=== PATIENT | male | born 2000 | race Caucasian/White ===

== ENCOUNTER 2022-04-06 12:33 | Emergency (ER) | payer MEDICAID, SELFPAY ==
[2022-04-06 12:35] VITALS: BP 96/41; PULSE 108; RESP 17; TEMP 38; O2SAT 98; BMI 23.4
--- NOTE | 2022-04-06 14:08 | EDS_ITS ---
HPI History of Present Illness Chief Complaint: Fever Informant: patient and spouse/S.O. 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 He had a little bit of dyspnea when he was febrile but he took Tylenol about 1.5 hours ago and now he is feeling better and breathing fine even when he walks. He denies any leg swelling or pain. No history of DVT or PE. Remote history of back surgery, otherwise healthy. He has Zofran at home and was taking it for nausea which helped. He is drinking fluids. Was feeling a little lightheaded earlier no near syncope or syncope. No chest pain. Unvaccinated against COVID. No known COVID exposures that he knows of, or other sick contacts. No travel out of the area. [facility] Medical History Asthma Chronic neck and back pain Spinal fusion, congenital Home Medications melatonin 3 mg capsule 3 mg PO HS PRN 11/12/21 [History Last Taken Unknown] ondansetron HCl 8 mg tablet 8 mg PO Q12H PRN #10 tab 12/21/21 [Rx Last Taken Unknown] Allergy/AdvReac Type Severity Reaction Status Date / Time No Known Allergies Allergy Unverified 12/21/21 06:42 Social History Smoking Status: Current every day smoker tobacco type: cigarettes ROS ROS ED Constitutional Constitutional ED: Reports body ache(s), chills, fatigue, fever(s), headache(s) and malaise Eyes Eyes: Denies change in vision or diplopia ENT ENT ED: Denies rhinorrhea or sore throat Cardiovascular Cardiovascular: Denies chest pain, palpitations or pedal edema Respiratory/Chest Respiratory/Chest: Reports as per HPI, cough and dyspnea on exertion Gastrointestinal Gastrointestinal: Reports nausea; Denies abdominal pain, diarrhea or vomiting Genitourinary Genitourinary ED: Denies dysuria or hematuria Musculoskeletal Musculoskeletal: Denies back pain or neck pain Integumentary Denies abscess or rash Neurologic Neurologic: Reports headache(s); Denies paresthesias or weakness Psychiatric Psychiatric: Denies anxiety or suicidal thoughts EXAM Physical Exam Const Vital Signs: 04/06/22 12:35 04/06/22 14:39 04/06/22 14:58 Temperature 100.4 F H 100.2 F H Temperature Source Temporal Oral Pulse Rate 108 H 109 H Pulse Rate [Lying] Pulse Rate [Sitting (for 1 minute prior to obtaining)] Pulse Rate [Standing (for 1 minute prior to obtaining)] Respiratory Rate 17 17 Respiratory Effort Normal Non-Labored Respiratory Pattern Normal Blood Pressure 96/41 L 94/34 L Blood Pressure [Lying] Blood Pressure [Sitting (for 1 minute prior to obtaining)] Blood Pressure [Standing (for 1 minute prior to obtaining)] Blood Pressure Mean 59 54 Blood Pressure Mean [Lying] Blood Pressure Mean [Sitting (for 1 minute prior to obtaining)] Blood Pressure Mean [Standing (for 1 minute prior to obtaining)] Pulse Ox 98 97 Oxygen Delivery Method Room Air Room Air 04/06/22 15:00 04/06/22 15:24 Temperature 98.9 F Temperature Source Oral Pulse Rate 97 Pulse Rate [Lying] 77 Pulse Rate [Sitting (for 1 minute prior to obtaining)] 87 Pulse Rate [Standing (for 1 minute prior to obtaining)] 102 H Respiratory Rate 16 Respiratory Effort Respiratory Pattern Blood Pressure 94/34 L Blood Pressure [Lying] 96/32 L Blood Pressure [Sitting (for 1 minute prior to obtaining)] 91/46 L Blood Pressure [Standing (for 1 minute prior to obtaining)] 92/33 L Blood Pressure Mean 54 Blood Pressure Mean [Lying] 53 Blood Pressure Mean [Sitting (for 1 minute prior to obtaining)] 61 Blood Pressure Mean [Standing (for 1 minute prior to obtaining)] 52 Pulse Ox 96 Oxygen Delivery Method Room Air Positive well nourished and well developed Constitutional Narrative: Well-appearing, no distress General Appearance ED: well developed and NAD HEENT Reports moist mucous membranes normocephalic and atraumatic Eyes PERRL and EOMs intact bilaterally Neck full ROM and supple Resp normal respiratory effort and clear to auscultation bilaterally Cardio regular rate, regular rhythm and no murmurs Rate: Negative for tachycardic GI non-tender and non-distended Auscultation: normoactive bowel sounds Palpation: soft Back/Spine no CVA tenderness General Back: other FROM Extremity normal to inspection and no calf tenderness General Extremety ED: Negative for edema, pulses abnormal or tenderness General Extremity: Negative for edema or pulses abnormal Neuro oriented x3, CN's II-XII intact bilaterally and no sensory deficits noted Sensorium / Orientation: awake and alert Motor Exam: strength 5/5 throughout Skin no rashes or lesions noted and no wounds MDM MDM MDM Narrative Medical decision making narrative: Patient symptoms are highly suspicious for COVID especially given the increased prevalence of it in the area at this time. Rapid COVID and rapid influenza are both negative, I think he is testing too early I think this is a false negative. He has been sick for about 12 hours. Sent COVID PCR and advised that he remain home quarantining as if he has COVID, he is healthy and 21 years old and does not meet any criteria for the oral antiretrovirals under EUA at this time. Given appropriate discharge instructions. It is noted his blood pressure was a little on the low side we did orthostatics and they were negative and he was asymptomatic. Lab Data Labs: Laboratory Results - last 24 hr 04/06/22 15:17 COVID-19 ([facility]) Cancelled Discharge Plan Triage Chief Complaint: Fever ED Provider: Casey Thao Dx/Rx/DC Orders Clinical Impression: Acute viral syndrome, Suspected COVID-19 virus infection Instructions: Coronavirus Disease 2019 (COVID-19): Caring for Yourself or Others Prescriptions: No Action melatonin 3 mg capsule 3 mg PO HS PRN (Reason: Sleep) RF: 0 ondansetron HCl 8 mg tablet 8 mg PO Q12H PRN (Reason: nausea and vomiting) Qty: 10 RF: 0 Primary Care Provider: Care Physician,No Primary Referrals: Jayda Tyler [NON-STAFF] - As Needed Care Physician,No Primary [Primary Care Provider] - Activity Restrictions/Additional Instructions: Try to get a home portable pulse oximeter and closely watch your oxygen levels periodically. If you stay below 90% for more than a minute or so, and/or you are feeling like your breathing is getting worse, return to the emergency department for further evaluation. Disposition Disposition: Home, Self Care
[2022-04-06] MEDS: Ketorolac 60 MG/2 ML Vial IM (14:35)
[2022-04-06 14:39] VITALS: BP 94/34; PULSE 109; RESP 17; TEMP 37.9; O2SAT 97
[2022-04-06 15:00] VITALS: BP 94/34; PULSE 97; RESP 16; TEMP 37.2; O2SAT 96
[2022-04-06 15:24] VITALS: BP 91/46; BP 92/33; BP 96/32; PULSE 102; PULSE 77; PULSE 87
== END 2022-04-06 16:08 | disposition home or self-care (01) ==
PROVIDERS: Emergency Provider Emergency Medicine; Visit Provider Emergency Medicine
DX: U07.1 COVID-19 (principal); J45.909 Unspecified asthma, uncomplicated; G89.29 Other chronic pain; M54.2 Cervicalgia; M54.9 Dorsalgia, unspecified; Z28.310 Unvaccinated for COVID-19; Z28.9 Immunization not carried out for unspecified reason; F17.210 Nicotine dependence, cigarettes, uncomplicated
CPT/HCPCS: 87428; 87635; 96372; 99283; U0003; U0005